=== PATIENT | female | born 1990 | race Two or more races ===

== ENCOUNTER 2017-12-18 01:14 | Emergency (ER) | payer OTHER ==
[~2017-12-18] VITALS: Ht 149.9 cm; Wt 55.4 kg
[2017-12-18 02:18] LABS: MEAN CORPUSCULAR HEMOGLOBIN 31.7 pg (27.0-34.8); MEAN CORPUSCULAR HGB CONC 34.1 g/dL (32.4-35.8); MEAN CORPUSCULAR VOLUME 92.9 fL (80-100); MEAN PLATELET VOLUME 7.7 fL (7.4-10.4); PLATELET COUNT 340 x10^3/uL (130-400); RED BLOOD COUNT 4.02 x10^6/uL (3.82-5.3); RED CELL DISTRIBUTION WIDTH 14.1 % (9.6-15.2)
[2017-12-18 02:23] LABS: MICROSCOPIC INDICATED
[2017-12-18 02:30] LABS: ALANINE AMINOTRANSFERASE 15 U/L (12-78); ALBUMIN 3.7 g/dL (3.4-5.0); ANION GAP 11 mmol/L (5-15); CALCIUM 8.5 mg/dL (8.5-10.1); CHLORIDE 109 mmol/L (98-107); CREATININE 0.56 mg/dL (0.55-1.02)
[2017-12-18 02:31] LABS: CULTURE INDICATED? NO
[2017-12-18 02:35] LABS: ALKALINE PHOSPHATASE 45 U/L (45-117); BILIRUBIN,TOTAL 0.7 mg/dL (0.2-1.0); TOTAL PROTEIN 7.4 g/dL (6.4-8.2)
[2017-12-18 02:58] LABS: BASOPHILS # (AUTO) 0.06 x10^3/uL (0-0.1); BASOPHILS % (AUTO) 1 % (0-1); EOSINOPHILS # (AUTO) 0.19 x10^3/uL (0-0.4); EOSINOPHILS % (AUTO) 2 % (1-7); LYMPHOCYTES # (AUTO) 2.31 x10^3/uL (1-3.4); LYMPHOCYTES % (AUTO) 19 % (22-44); MD SCAN; MONOCYTES # (AUTO) 1.54 x10^3/uL (0.2-0.8); MONOCYTES % (AUTO) 13 % (2-9); NEUTROPHILS # (AUTO) 8.25 x10^3/uL (1.8-6.8); NEUTROPHILS % (AUTO) 67 % (42-75)
[2017-12-18] MEDS ORDERED: SODIUM CHLORIDE FLUSH 10ML SYR IVF ONE (03:00)
[2017-12-18 03:33] VITALS: BP 104/55
== END 2017-12-18 03:35 | disposition home or self-care (01) ==
LOC: ED 03:15
DX: K80.20 Calculus of gallbladder without cholecystitis without obstruction (principal)
CPT/HCPCS: 36415; 76700; 80053; 81001; 83690; 84703; 85025; 99285

== ENCOUNTER 2017-12-21 21:48 | Observation (INO) | payer OTHER ==
[~2017-12-21] VITALS: Ht 157.5 cm; Wt 47.0 kg
[2017-12-21] MEDS ORDERED: HYDR-3237 PO (21:52)
[2017-12-21 22:47] LABS: BASOPHILS # (AUTO) 0.05 x10^3/uL (0-0.1); BASOPHILS % (AUTO) 1 % (0-1); EOSINOPHILS % (AUTO) 2 % (1-7); LYMPHOCYTES # (AUTO) 2.24 x10^3/uL (1-3.4); LYMPHOCYTES % (AUTO) 25 % (22-44); MD NO; MEAN CORPUSCULAR HEMOGLOBIN 31.2 pg (27.0-34.8); MEAN CORPUSCULAR HGB CONC 33.6 g/dL (32.4-35.8); MEAN CORPUSCULAR VOLUME 93.1 fL (80-100); MEAN PLATELET VOLUME 7.7 fL (7.4-10.4); MONOCYTES # (AUTO) 0.74 x10^3/uL (0.2-0.8); MONOCYTES % (AUTO) 8 % (2-9); NEUTROPHILS # (AUTO) 5.83 x10^3/uL (1.8-6.8); NEUTROPHILS % (AUTO) 64 % (42-75); PLATELET COUNT 391 x10^3/uL (130-400); RED BLOOD COUNT 3.75 x10^6/uL (3.82-5.3)
[2017-12-21 22:59] LABS: ALANINE AMINOTRANSFERASE 20 U/L (12-78); ALBUMIN 3.2 g/dL (3.4-5.0); ANION GAP 9 mmol/L (5-15); CALCIUM 8.6 mg/dL (8.5-10.1); CHLORIDE 109 mmol/L (98-107); CREATININE 0.62 mg/dL (0.55-1.02)
[2017-12-21 23:01] LABS: ALKALINE PHOSPHATASE 46 U/L (45-117); BILIRUBIN,TOTAL 0.2 mg/dL (0.2-1.0); TOTAL PROTEIN 6.9 g/dL (6.4-8.2)
[2017-12-21] MEDS ORDERED: OXYcodone/APAP 5/325MG TABLET ONE (23:04)
[2017-12-21] MEDS ORDERED: OXYcodone/APAP 5/325MG TABLET PO ONE (23:30)
[2017-12-22] MEDS ORDERED: HYDROmorphone 2 MG/ML, 1ML ONE ×2 (00:23→04:36)
[2017-12-22] MEDS ORDERED: HYDROmorphone 1 MG/ML, 1ML IM ONE (00:30)
[2017-12-22] MEDS ORDERED: SODIUM CHLORIDE 0.9% 1,000 ML IV ONE (01:15)
[2017-12-22] MEDS ORDERED: SODIUM CHLORIDE 0.9% 1,000ML IVBOLUS ONE (01:30)
[2017-12-22] MEDS ORDERED: SODIUM CHLORIDE FLUSH 10ML SYR IVF ONE (01:30)
[2017-12-22] MEDS ORDERED: ONDANSETRON 2MG/ML, 2ML IVPush PRN ×2 (01:30→07:00)
[2017-12-22] MEDS ORDERED: SODIUM CHLORIDE FLUSH 10ML SYR IVF PRN (01:30)
[2017-12-22] MEDS ORDERED: PROMETHAZINE 25 MG/ML, 1ML IM PRN (01:30)
[2017-12-22] MEDS ORDERED: HYDROmorphone 2 MG/ML, 1ML IVPush PRN (01:30)
[2017-12-22 01:57] VITALS: BP 127/79
[2017-12-22 02:22] VITALS: BP 127/79
[2017-12-22] MEDS ORDERED: BUPIVACAINE/PF-EPI 0.5% 1:200K ONE (02:23)
[2017-12-22] MEDS: HYDROmorphone 1 MG/ML, 1ML IVPush PRN ×2 (04:38→05:08)
[2017-12-22] MEDS ORDERED: BUPIVACAINE/PF-EPI 0.5% 1:200K IM ONE (05:05)
[2017-12-22] MEDS ORDERED: MIDAZOLAM 1 MG/ML, 2ML ONE (05:42)
[2017-12-22] MEDS ORDERED: FENTANYL PF 250 MCG/5ML ONE (05:42)
[2017-12-22] MEDS ORDERED: CEFAZOLIN 1,000 MG ONE (06:00)
[2017-12-22] MEDS ORDERED: ROCURONIUM 10MG/ML,5ML ONE (06:03)
[2017-12-22] MEDS ORDERED: PROPOFOL 10 MG/ML, 20ML ONE (06:03)
[2017-12-22] MEDS ORDERED: SUCCINYLCHOLINE 20 MG/ML, 10ML ONE (06:04)
[2017-12-22] MEDS ORDERED: DEXAMETHASONE 4 MG/ML, 1ML ONE (06:04)
[2017-12-22] MEDS ORDERED: KETOROLAC 30 MG/1 ML ONE (06:04)
[2017-12-22] MEDS ORDERED: ONDANSETRON 2MG/ML, 2ML ONE (06:04)
[2017-12-22] MEDS ORDERED: HYDROmorphone 1 MG/ML, 1ML IV PRN (06:30)
[2017-12-22] MEDS ORDERED: ACETAMINOPHEN 325 MG TABLET PO PRN (06:30)
[2017-12-22] MEDS ORDERED: HYDROcodone/APAP 7.5-325MG/15ML UDC PO PRN (06:30)
[2017-12-22] MEDS ORDERED: LABETALOL 5MG/ML, 20ML IV PRN (06:30)
[2017-12-22] MEDS ORDERED: EPHEDRINE 50 MG/ML, 1ML IVPush PRN (06:30)
[2017-12-22] MEDS ORDERED: FENTANYL PF 100 MCG/2ML IV PRN (06:30)
[2017-12-22] MEDS ORDERED: LORazepam 2 MG/ML, 1ML IVPush PRN (06:30)
[2017-12-22] MEDS ORDERED: ONDANSETRON ODT 8 MG PO PRN (06:30)
[2017-12-22] MEDS ORDERED: hydrALAzine 20 MG/ML, 1ML IV PRN (06:30)
[2017-12-22] MEDS ORDERED: MIDAZOLAM 1 MG/ML, 2ML IV PRN (06:30)
[2017-12-22] MEDS ORDERED: MEPERIDINE/PF 25MG/0.5ML IVPush PRN (06:30)
[2017-12-22] MEDS ORDERED: PROMETHAZINE 12.5 MG SUPP PR PRN (06:30)
[2017-12-22] MEDS ORDERED: ONDANSETRON 2MG/ML, 2ML IV PRN (06:30)
[2017-12-22] MEDS ORDERED: ALBUTEROL SULFATE 2.5 MG/3 ML NPPB PRN (06:30)
[2017-12-22] MEDS ORDERED: MORPHINE SULFATE 4 MG/ML, 1ML IVPush PRN (06:30)
[2017-12-22] MEDS ORDERED: HALOPERIDOL 5 MG/ML IV PRN (06:30)
[2017-12-22] MEDS ORDERED: OXYcodone 5 MG/5 ML ORAL.SOL UDC PO PRN ×2 (06:30→07:00)
[2017-12-22] MEDS ORDERED: PROMETHAZINE 25 MG/ML, 1ML IV PRN (06:30)
[2017-12-22] MEDS ORDERED: morphine SULFATE 10 MG/ML, 1ML IVPush PRN (07:00)
[2017-12-22] MEDS ORDERED: OXYcodone 5 MG/5 ML ORAL.SOL UDC ONE (07:13)
[2017-12-22] MEDS ORDERED: FENTANYL PF 100 MCG/2ML ONE (07:14)
[2017-12-22 08:00] VITALS: BP 121/85
[2017-12-22] MEDS ORDERED: OXYC5CAP2 PO (08:45)
[2017-12-22 11:45] VITALS: BP 111/55
== END 2017-12-22 13:20 | disposition home or self-care (01) ==
LOC: ED 22:11 → INTOOBSV 12-22 01:15 → EDIP 12-22 01:15 → 4NOR 12-22 01:50 → DCLOUNGE 12-22 13:00
PROVIDERS: ADMIT Surgery; ATTEND Surgery
DX: K80.10 Calculus of gallbladder with chronic cholecystitis without obstruction (principal); F17.200 Nicotine dependence, unspecified, uncomplicated
CPT/HCPCS: 36415; 47562; 76700; 80053; 81025; 83690; 85025; 88304; 96372; 96374; G0378; J0330; J0690; J1100; J1170; J1885; J2250; J2405; J2704; J3010; J7030